=== PATIENT | female | born 1990 | race Caucasian/White ===

== ENCOUNTER 2021-03-11 07:59 | Inpatient (IN) ==
[2021-03-11] MEDS ORDERED: Ondansetron 4 MG/2 ML VIAL IVP PRN ×2 (08:11→11:29)
[2021-03-11] MEDS ORDERED: Azithromycin 500 MG in 0.9 % Sodium Chloride 250 ML IVPB ONE (08:11)
[2021-03-11] MEDS ORDERED: Naloxone 0.4 MG/ML INJ IVP PRN ×2 (08:11→11:29)
[2021-03-11] MEDS ORDERED: Metoclopramide 10 MG/2 ML VIAL IVP PRN (08:11)
[2021-03-11] MEDS ORDERED: Famotidine 20 MG/2 ML VIAL IVP PRN (08:11)
[2021-03-11] MEDS ORDERED: *HR* Nalbuphine 10 MG/ML AMPUL IV PRN (08:11)
[2021-03-11] MEDS ORDERED: Ringers Solution, Lactated 1,000 ML IVC SCH (08:15)
[2021-03-11] MEDS ORDERED: miSOPROStoL 25 MCG TABLET PO PRN (08:15)
[2021-03-11 08:58] LABS: Basophils % 0.3 %; Eosinophils # 0.1 K/mcL (0.0-0.6); Eosinophils % 1.1 %; Hematocrit 38.7 % (35.3-44.9); Hemoglobin 12.5 g/dL (11.5-15.4); Immature Granulocytes % 0.6 % (0-4); Lymphocytes # 3.6 K/mcL (0.6-4.6); Lymphocytes % 31.7 %; Mean Corpuscular HGB Conc 32.3 g/dL (31.6-35.5); Mean Corpuscular Hemoglobin 28.5 pg (28.0-33.3); Mean Corpuscular Volume 88.4 fL (83.0-100.0); Monocytes # 0.5 K/mcL (0.0-1.3); Monocytes % 4.4 %; Platelet Count 254 K/mcL (140-400); Red Blood Count 4.38 M/mcL (3.82-4.97); Red Cell Distribution Width 12.8 % (11.5-14.5); Segmented Neutrophils % 61.9 %; White Blood Count 11.3 K/mcL (4.3-11.1)
[2021-03-11] MEDS ORDERED: Oxytocin 20 units/ LR 1000 mL 20 UNIT/1,000 ML BAG IVC ONE ×2 (09:11→17:16)
[2021-03-11] MEDS ORDERED: Oxytocin 20 units/ LR 1000 mL 20 UNIT/1,000 ML BAG IVC SCH ×2 (09:15→17:16)
[2021-03-11 09:59] LABS: Amphetamine Screen,Urine Negative ng/mL (Cutoff=1000); Barbiturate Screen,Urine Negative ng/mL (Cutoff=200); Benzodiazepines Screen,Urine Negative ng/mL (Cutoff=200); Cannabinoid Screen,Urine Negative ng/mL (Cutoff = 50); Cocaine Screen,Urine Negative ng/mL (Cutoff= 300); Opiate Screen,Urine Negative ng/mL (Cutoff=300); Phencyclidine Screen,Urine Negative ng/mL (Cutoff=25)
[2021-03-11 10:05] LABS: Adenovirus Not Detected (Not Detect); Bordetella Pertussis Not Detected (Not Detect); Chlamydophila pneumoniae Not Detected (Not Detect); Coronavirus 229E DETECTED (Not Detect); Coronavirus HKU1 Not Detected (Not Detect); Coronavirus NL63 Not Detected (Not Detect); Coronavirus OC43 Not Detected (Not Detect); Human Metapneumovirus Not Detected (Not Detect); Human Rhinovirus/Enterovirus Not Detected (Not Detect); Influenza A Subtype 2009 H1 Not Detected (Not Detect); Influenza B Not Detected (Not Detect); Mycoplasma pneumoniae Not Detected (Not Detect); Parainfluenza Virus 1 Not Detected (Not Detect); Parainfluenza Virus 2 Not Detected (Not Detect); Parainfluenza Virus 3 Not Detected (Not Detect); Parainfluenza Virus 4 Not Detected (Not Detect); Respiratory Syncytial Virus Not Detected (Not Detect); SARS-CoV-2 Not Detected (Not Detect)
[2021-03-11] MEDS ORDERED: Ropivacaine/PF 0.2% 20 ML VIAL EP ONE (11:29)
[2021-03-11] MEDS ORDERED: EPHEDrine 50 MG/ML VIAL IVP PRN (11:29)
[2021-03-11] MEDS ORDERED: Epidural Premix (fent/bupiv) 110 ML EP SCH (11:30)
[2021-03-11] MEDS ORDERED: Ropivacaine/PF 0.2% 20 ML VIAL ONE (11:40)
[2021-03-11] MEDS ORDERED: Acetaminophen 325 MG TABLET PO PRN (17:16)
[2021-03-11] MEDS: Ibuprofen 600 MG TABLET PO PRN (20:21)
[2021-03-12 07:59] VITALS: BP 110/68
[2021-03-12] MEDS: Ibuprofen 600 MG TABLET PO PRN (08:13)
[2021-03-12] MEDS ORDERED: Prenatal Vit/FA 1 EACH TABLET PO SCH (09:00)
== END 2021-03-12 14:10 | disposition home or self-care (01) | DRG 560 ==
LOC: 1NENULAB 07:59 → 1NENUOBS 18:26
PROVIDERS: ADMIT Obstetrics & Gynecology; ATTEND Obstetrics & Gynecology